=== PATIENT | male | born 1945 | race Caucasian/White ===

== ENCOUNTER → 2017-08-20 | Outpatient (CLI) | payer OTHER, MEDICAID | LOC: BMCIMAGING 12:00 | PROVIDERS: ATTEND Orthopaedic Surgery Hand Surgery | DX: M25.78 Osteophyte, vertebrae (principal); M53.82 Other specified dorsopathies, cervical region; M48.02 Spinal stenosis, cervical region; T84.038A Mechanical loosening of other internal prosthetic joint, initial encounter; Z96.611 Presence of right artificial shoulder joint ==

== ENCOUNTER → 2018-04-16 | Outpatient (CLI) | payer OTHER, MEDICAID | LOC: FIMAGING 13:39 | PROVIDERS: ATTEND Orthopaedic Surgery Hand Surgery | DX: M25.511 Pain in right shoulder (principal); Z96.611 Presence of right artificial shoulder joint ==

== ENCOUNTER → 2018-10-01 | Outpatient (CLI) | payer OTHER, MEDICAID ==
[~2018-10-01] MED LIST: IOPAMIDOL (ISOVUE-370) 150 ML BTL IV ONE; NITROGLYCERIN 0.4 MG BTL SL ONE
== END ==
LOC: FIMAGING 10:16
PROVIDERS: ATTEND Internal Medicine Cardiovascular Disease
DX: R06.02 Shortness of breath (principal); I25.10 Atherosclerotic heart disease of native coronary artery without angina pectoris; I10 Essential (primary) hypertension; E11.9 Type 2 diabetes mellitus without complications
CPT/HCPCS: 75574; Q9967; 82565-PO

== ENCOUNTER → 2018-10-09 | Outpatient (CLI) | payer OTHER, MEDICAID | LOC: BHFA 14:45 | PROVIDERS: ATTEND Internal Medicine Cardiovascular Disease | DX: J44.9 Chronic obstructive pulmonary disease, unspecified (principal); I10 Essential (primary) hypertension ==